=== PATIENT | female | born 1970 | race Caucasian/White ===

== ENCOUNTER 2017-07-30 | Emergency (ER) | payer OTHER ==
[~2017-07-30] VITALS: Ht 160 cm; Wt 65.8 kg
--- NOTE | ~2017-07-30 | EKG ---
[place] [address] [facility] [place] [address] ELECTROCARDIOGRAM REPORT Name: GOMEZ CHARLESLIE Room #: [facility]P [facility] [id number] Admission: 07/30/17 Attend Phys: Discharge: 07/30/17 Date of : 66 Report #: [id number] THIS REPORT FOR: //name// [facility] ED Test Date: 2017-07-30 Test Time: 00:32:10 Pat Name: ERIC WIGGINS Department: Room: Gender: F Package Delivery Room Service Runner: ryan mccord : 1970 Requested By: Elliott Berry Order Number: [id number] MD: Antony Romeo Measurements Intervals [place] Rate: 78 P: 79 MS: 160 QRS: 78 QRSD: 123 T: 43 QT: 412 QTc: 470 Interpretive Statements Sinus rhythm No significant abnormality No previous ECG available for comparison Electronically Signed On 07-30-2017 7:50:00 CDT by Antony Romeo [email or web address] <ELECTRONICALLY SIGNED> By: Antony Romeo MD, [facility] 07/30/17 0750 0032 0032 Antony Romeo MD, FACC /EPI
[2017-07-30] MEDS ORDERED: BREATHING TREATMENT (00:08)
[2017-07-30 00:19] LABS: ABSOLUTE NEUTROPHILS 3.4 thou/uL (1.4-8.2); BASOPHILS 0.9 % (0.0-2.0); EOSINOPHILS 1.2 % (0.0-3.0); HEMATOCRIT 41.9 % (37.0-47.0); HEMOGLOBIN 14.3 gm/dL (12.0-15.0); LYMPHOCYTES 50.7 % (24.0-44.0); MCHC 34.2 g/dL (28.0-37.0); MCV 93.6 fL (80.0-100.0); MONOCYTES 7.1 % (1.0-8.0); PLATELET COUNT 354 thou/uL (150-400); POLYS 40.1 % (36.0-66.0); RBC 4.47 mil/uL (4.20-5.00); RDW 13.8 % (10.5-14.5); WBC 8.5 thou/uL (4.0-11.0)
[2017-07-30 00:23] LABS: ANION GAP 12 mmol/L (7-16); BUN 11 mg/dL (7-18); CALCIUM 9.1 mg/dL (8.5-10.1); CHLORIDE 106 mmol/L (98-107); CO2 24 mmol/L (21-32); CREATININE 0.8 mg/dL (0.6-1.0); GLUCOSE 113 mg/dL (74-106); POTASSIUM 3.8 mmol/L (3.5-5.1); SODIUM 142 mmol/L (136-145)
[2017-07-30 00:31] LABS: ALBUMIN 3.7 g/dL (3.4-5.0); LIPASE 399 U/L (73-393); SALICYLATE < 2.8 mg/dL (2.8-20.0); SGOT 19 U/L (15-37); SGPT 19 U/L (30-65); TOTAL BILIRUBIN 0.1 mg/dL (<0.1-1.0); TOTAL PROTEIN 6.8 g/dL (6.4-8.2); TROPONIN-I < 0.04 ng/mL (<0.06)
[2017-07-30 00:52] LABS: URINE BILIRUBIN NEGATIVE (Negative); URINE BLOOD 1+ (Negative); URINE CLARITY CLEAR; URINE COLOR YELLOW; URINE GLUCOSE-RANDOM* NEGATIVE (Negative); URINE KETONES NEGATIVE (Negative); URINE LEUKOCYTES-REFLEX NEGATIVE (Negative); URINE NITRITE-REFLEX NEGATIVE (Negative); URINE PROTEIN (DIPSTICK) NEGATIVE (Negative); URINE UROBILINOGEN 0.2 E.U./dl (0.2-1.0)
[2017-07-30 01:00] LABS: AMP/METHAMP Negative (Negative); BARBITURATES Negative (Negative); BENZODIAZEPINES Negative (Negative); COCAINE Negative (Negative); METHADONE Negative (Negative); OPIATES Negative (Negative); PCP Negative (Negative)
[2017-07-30 01:04] LABS: BACTERIA-REFLEX None Seen /HPF (None Seen); CASTS None Seen /LPF (None Seen); CRYSTALS None Seen /LPF (None Seen); MUCUS None Seen strn/LPF (None Seen); SQUAMOUS None Seen /LPF (0-3); URINE RBC 0-2 Rare /HPF (0-2); URINE WBC-REFLEX None Seen /HPF (0-5)
[2017-07-30] MEDS ORDERED: ATIVAN1 MG PO (01:38)
[2017-07-30] MEDS ORDERED: NAPROSYN500 MG PO (01:38)
[2017-07-30 02:26] VITALS: BP 110/56
== END 2017-07-30 02:27 | disposition home or self-care (01) ==
LOC: ER
PROVIDERS: Emergency Medicine
DX: M54.6 Pain in thoracic spine (principal); F10.129 Alcohol abuse with intoxication, unspecified; F41.9 Anxiety disorder, unspecified; R06.4 Hyperventilation; J44.9 Chronic obstructive pulmonary disease, unspecified; F17.210 Nicotine dependence, cigarettes, uncomplicated